=== PATIENT | male | born 1970 | race Caucasian/White ===

== ENCOUNTER 2020-08-23 08:47 | Inpatient (IN) | payer OTHER ==
[~2020-08-23] VITALS: Ht 185.4 cm; Wt 66.7 kg
[~2020-08-23 08:47] MED LIST: AMLODIPINE PO; AUGMENTIN 875875 M1 PO; BENAZEPRIL-HCT1 EA11 PO; CARBIDOPA-LEVO1 EA10 PO; CARBIDOPA-LEVO1 EAC5 PO; COUMADIN 5 MG TA5 M1 OR; DEPAKOTE500 MG PO; DESYREL150 MG PO; FENTANYL 1100 MCG/HR TD; HYDROCHLOROTHIA25 M2 PO; HYDROXYZINE PA100 MG PO; IBUPROFEN 800800 M1 PO; INVANZ IV; INVEGA6 MG PO; LEVOTHYROXINE25 MCG PO; LIPITOR40 MG PO; LISINOPRIL20 MG PO; LOPRESSOR100 MG PO; LORTAB 7.5/5001 TA3 PO; LOVENOX SQ; PERCOCET 5-3251 EACH PO; PROTONIX40 M2 PO; PROZAC 20 MG20 M1 PO; SENNA-S TABLET1 EACH PO; UNICOMPLEX M TA1 TA1 PO; VITAMINC500 PO; ZINC SULFATE 2220 MG PO
[2020-08-23] MEDS ORDERED: LISINOPRIL10 MG PO (11:02)
[2020-08-23] MEDS ORDERED: PRIMIDONE50 MG PO (11:02)
[2020-08-23] MEDS ORDERED: TRAZODONE HCL100 MG PO (11:03)
[2020-08-23] MEDS ORDERED: PROZAC20 MG PO (11:03)
[2020-08-23] MEDS ORDERED: GABAPENTIN 100100 MG PO (11:03)
[2020-08-23] MEDS ORDERED: AMITRIPTYLINE H10 M1 PO (11:03)
[2020-08-23 12:30] VITALS: BP 151/93
--- NOTE | 2020-08-23 14:01 | NUR ---
PT. ARRIVED ON THE UNIT AT 1200. PT. ARRIVED IN W/C ACCOMPANIED BY 3RD FLOOR STAFF. HE GOT INTO BED. HE ATE LUNCH AND GOT HIS VITAL SIGNS DONE. PART OF THE ADMISSION WAS DONE WHEN OT WANTED PT. TO GIVE HIM A SHOWER. PT. LEFT. HE ASKED FOR TYLENOL BUT MEDICATIONS WERE NOT INTO THE COMPUTER. WHEN MEDICATIONS WERE ENCODED THERE WERE NO PRN'S. EMRE CALLED, MESSAGE LEFT. PT. LIVES WITH HIS . PT. IS HERE FOR FAILURE TO THRIVE, FALLING AND WEAKNESS. HE STATES HE IS DEPRESSED AND THIS STARTED HIM NOT EATING. HE BECAME WEAK, STARTED FALLING AND CAME TO THE HOSPITAL. HE HAS A PMHX OF PARKINSON, OBSTRUCTIVE SLEEP APNEA, GERD, HYPOTHYROIDISM, HYPERLIPIDEMIA, DIVERTICULOSIS. HE USES OXYGEN AT NOC BUT NOT DURING THE DAY. HE HAS A IV IN HIS RIGHT FOREARM. HE HAS A SURGICAL HISTORY OF COLON RESECTION, APPENDECTOMY. HE IS COOPERATIVE WITH THE ADMISSION PROCESS.
--- NOTE | 2020-08-23 14:46 | NUR ---
chart review, visited with him while he was working with physial therapy. cm cont to wear face mask and shield during visit. intro to cm, team meeting and dcp. he cont to work with therapy. noted he lives with , has 2 steps to enter the home. independent prior to hospital. no dme, no hh or rehab in past. will cont following as needed for dc needs.
[2020-08-23 20:00] VITALS: BP 135/92
[2020-08-24 05:18] LABS: HEMOGLOBIN 9.9 gm/dL (14.0-18.0); MCH 25.9 pg (26.0-34.0); MCHC 32.8 g/dL (28.0-37.0); MCV 78.8 fL (80.0-100.0); RBC 3.81 mil/uL (4.50-6.00); RDW 16.1 % (10.5-14.5)
[2020-08-24 05:39] LABS: CALCIUM 8.5 mg/dL (8.5-10.1); CREATININE 0.7 mg/dL (0.7-1.3)
--- NOTE | 2020-08-24 06:56 | NUR ---
DENIES PAIN, USING URINAL, TOLERATING MEDS WITH WATER. QUIET HOURS
[2020-08-24 08:00] VITALS: BP 137/87
[2020-08-24 08:02] VITALS: BP 137/87
--- NOTE | 2020-08-24 13:11 | NUR ---
Nutrition: REC replete K+, currently 3.0. Also Mg 1.6, low.
--- NOTE | 2020-08-24 16:28 | NUR ---
PT ALERT AND ORIENTED TIMES FOUR WITH SOMEWAHT OF A BLUNTED AFFECT. PT DENIES PAIN/SOA AT THIS TIME. PT TOLERATES MED AND MEALS. PT WORKED WELL WITH PT/OT. PT AT BEDSIDE THIS AFTERNOON. PT SLOWLY PROGRESSING TOWARDS POC GOALS.
[2020-08-24 19:40] VITALS: BP 130/89
[2020-08-24 23:06] LABS: GLYCOHEMOGLOBIN (HGB A1C) 5.2 % (4.8-5.6)
--- NOTE | 2020-08-24 23:22 | NUR ---
PT ASSESSMENT COMPLETED AND VSS. MEDS GIVEN ORDERED AND WELL TOLERATED. FALL PRECAUTIONS IN PLACE. 2L NC AT HS. SAT WNL ON 2L NC. PT ATE SNACK AT HS. PT MOVING AROUND WELL IN BED. PT DENIES NEEDS. SLEEPING WELL. WILL CONTINUE TO MONITOR FREQUENTLY.
[2020-08-25 06:28] VITALS: BP 144/92
[2020-08-25 06:30] VITALS: BP 123/96
[2020-08-25 06:31] VITALS: BP 126/86
[2020-08-25 07:24] VITALS: BP 139/98
--- NOTE | 2020-08-25 12:15 | NUR ---
ASSUMED CARE AT 0700. PATIENT IS ALERT AND ORIENTED X4. PATIENT RAZO'S, IDENTIFICATION OFFICER ARE EQUAL. LUNGS ARE CLEAR. ABD IS SOFT WITH BSX4. PATIENT USES URINAL TO VOID DIOGO COLORED URINE. FALL AND SAFETY PROTOCOLS IN PLACE. DENIES PAIN AT THIS TIME. UP IN THE CHAIR FOR MEALS. S.L. IN HIS RIGHT FORARM. WILL CONTINUE TO MONITER.
[2020-08-25 12:43] LABS: URINE BILIRUBIN NEGATIVE (Negative); URINE BLOOD NEGATIVE (Negative); URINE CLARITY CLEAR; URINE COLOR YELLOW; URINE GLUCOSE-RANDOM* NEGATIVE (Negative); URINE KETONES NEGATIVE (Negative); URINE LEUKOCYTES-REFLEX TRACE (Negative); URINE NITRITE-REFLEX NEGATIVE (Negative); URINE PROTEIN (DIPSTICK) NEGATIVE (Negative); URINE SPECIFIC GRAVITY 1.015 (1.005-1.035)
[2020-08-25 12:50] LABS: SSA (PROTEIN CONFIRMATORY) NEGATIVE (Negative)
[2020-08-25 19:42] VITALS: BP 147/82
[2020-08-25 21:14] VITALS: BP 138/64
--- NOTE | 2020-08-25 23:21 | NUR ---
PT ASSESSMENT COMPLETED AND VSS. MEDS GIVEN ORDERED AND WELL TOLERATED. FALL PRECAUTIONS IN PLACE. VOIDING MODERATE AMOUNT OF YELLOW URINE PER URINAL. PT MOVING WELL IN THE BED ON HIS OWN. 2L NC ON A HS FOR SLEEP APNEA. PT DENIES NEEDS. SLEEPING AT THIS TIME. WILL CONTINUE TO MONITOR FREQUENTLY.
[2020-08-26 05:08] LABS: CALCIUM 8.9 mg/dL (8.5-10.1); CREATININE 0.8 mg/dL (0.7-1.3); POTASSIUM 4.2 mmol/L (3.5-5.1)
[2020-08-26 07:10] VITALS: BP 139/95
--- NOTE | 2020-08-26 10:15 | NUR ---
ASSUMED CARE AT 0700. PATIENT IS ALERT AND ORIENTED X4. PATIENT RAZO'S, DAIRY FARM WORKER ARE EQUAL. LUNGS ARE CLEAR AND DEMINISHED. ABD IS SOFT WITH BSX4. UP IN CHAIR FOR BREAkfast. VOIDING DIOGO COLORED URINE PER URINAL. S.L. IN RIGHT F.A. PATIENT AND INTACT. FALL AND SAFETY PROTOCOLS IN PLACE. DENIES PAIN AT THIS TIME. WILL CONTINUE TO MONITER.
[2020-08-26 19:52] VITALS: BP 146/100
--- NOTE | 2020-08-27 01:33 | NUR ---
assumed care approx 1899 evening 08/26. pt alert and oriented x4, appropriate and cooperative. pt voiding per urinal. pt took hs meds with water tolerating well. pt appears to be sleeping soundly. bed alarm on and call light in reach. will continue to monitor.
[2020-08-27 05:29] LABS: ABSOLUTE NEUTROPHILS 3.1 thou/uL (1.4-8.2); BASOPHILS 0.6 % (0.0-2.0); EOSINOPHILS 0.5 % (0.0-3.0); HEMATOCRIT 31.6 % (42.0-52.0); HEMOGLOBIN 10.6 gm/dL (14.0-18.0); LYMPHOCYTES 38.9 % (24.0-44.0); MCH 26.6 pg (26.0-34.0); MCHC 33.4 g/dL (28.0-37.0); MCV 79.5 fL (80.0-100.0); MONOCYTES 11.7 % (1.0-8.0); PLATELET COUNT 284 thou/uL (150-400); POLYS 48.3 % (36.0-66.0); RBC 3.98 mil/uL (4.50-6.00); RDW 16.8 % (10.5-14.5); WBC 6.5 thou/uL (4.0-11.0)
[2020-08-27 05:57] LABS: CALCIUM 9.1 mg/dL (8.5-10.1); CREATININE 0.8 mg/dL (0.7-1.3); MAGNESIUM 1.6 mg/dL (1.8-2.4); POTASSIUM 4.2 mmol/L (3.5-5.1)
[2020-08-27 07:47] VITALS: BP 142/97
--- NOTE | 2020-08-27 18:52 | NUR ---
Pt c/o constipation. Reports small BM this afternoon following Miralax. Tylenol given this evening for c/o PARSONS. Otherwise no complaints. Voiding per urinal. VSS.
[2020-08-27 19:41] VITALS: BP 138/94
--- NOTE | 2020-08-28 02:31 | NUR ---
TOLERATING MEDS WITH WATER, USING URINAL FOR 350 CC CLEAR YELLOW URINE. 02 2L AT NIGHT DUE TO CHRONIC SLEEP APNEA.
[2020-08-28 07:33] VITALS: BP 121/87
--- NOTE | 2020-08-28 08:43 | NUR ---
ASSUMED CARE AT 0700. PATIENT IS ALERT AND ORIENTED X4. PATIENT HAS TREMORS IN BOTH HANDS. LUNGS ARE CLEAR. ABD IS SOFT WITH BSX4. PATIENT HAD BM YESTERDAY. PATIENT USES URINAL TO VOID DIOGO COLORED URINE. UP IN THE CHAIR FOR MEALS. FALL AND SAFETY PROTOCOLS IN PLACE. DENIES PAIN AT THIS TIME. CONTINUES TO PROGRESS TOWARDS D/C GOALS. WILL CONTINUE TO MONITER.
--- NOTE | 2020-08-28 09:09 | HC ---
[facility] [place] [address] CONSULTATION Name: ROSMERY SAHNI Room #: 505-P ADM IN ..#: [id number] Admission: 08/23/20 Attend Phys: Derick Gardner MD Discharge: Date of : 72 Report #: [id number] THIS REPORT FOR: cc: SIMIN BROWER Physician not on staff Silverio Mathur PhD ~ DATE OF SERVICE: 08/26/2020 NEUROBEHAVIORAL STATUS EXAM AGE: 50 ATTENDING PHYSICIAN: Derick Gardner MD SPECIAL WARFARE OPERATOR: Silverio Mathur, PhD CLINICAL PRESENTATION: The patient is a 50-year-old male admitted to the hospital on 08/17/2020 with weakness and inability to care for himself in his home. The patient has had a 6-month decline in physical status and there was a significant decline in the 48 hours preceding hospitalization. The patient has been diagnosed with Parkinson's disease about 5 months ago and started with Sinemet with a noted improvement in tremors. The patient has had a very significant weight loss in the past 12 months, losing from 280 to 150 pounds. He carries an admitting diagnosis of parkinsonism with falls and gait instability and tremor, peripheral neuropathy, lung nodules, anemia, hypertension, insomnia, PCM, history of colonic perforation, anxiety, obstructive sleep apnea and GERD. A complete description of his medical condition and history can be found in his medical record. Neuropsychological consultation was requested to provide assistance in the assessment of cognitive with an emotional status and provide recommendations and services. Prior to this most recent admission, he was living with the assistance of his in their home. He has a history of frequent falls. He did fall and hit his head more significantly last year. Family history of depression is reported. The patient has had an identical twin that from suicide in 2005. The patient carries a diagnosis of depression and difficulty with frustration tolerance and anger. Depressive disorder was diagnosed in 2005. Parkinson's disease was diagnosed last year. A ruptured colon was reported. His indicates that he has been unable to walk or stand. The patient has 1 child that is reported as a drug addict. The patient has had trouble driving. 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 The patient has not worked for 10 years. TECHNIQUES UTILIZED: Clinical interview, review of medical records, staff [facility] [address] [place] [address] CONSULTATION Name: KAITLYNROSMERY Room #: 505-P [facility] IN [facility].#: [id number] Admission: 08/23/20 Attend Phys: Derick Gardner MD Discharge: Date of : 72 Report #: [id number] consultation and behavioral observation, mini mental status exam 2 standard version, clock drawing and verbal fluency assessment. EXAMINATION FINDINGS: The patient was alert and cooperative with the assessment. There is no evidence of aphasia. His thoughts are logical and goal oriented. There is no evidence of thought disorder. He does not report auditory or visual hallucinations. Symptoms include sleep disorder, decreased appetite, problems with memory and word finding. His performance on the MMSE 2 brief version was in the borderline range with a raw score of 13/16, which is a T score of 31 and percentile rank of 3. The patient was 3/3 for initial registration, 5/5 for orientation to time, 4/[address] and 1/3 for immediate recall of 3 items after a brief time delay and distraction. Performance on the MMSE 2 standard version was 23/30, which is in the borderline range with a T score of 29 and percentile rank at 2. He was 2/5 for serial sevens, 2/2 for naming, 1/1 for repetition, 3/3 for comprehension. He could read and follow single command and write a sentence. The patient was unable to copy a simple geometric design. The patient has significant visual spatial and constructive deficits. He was able to set the hands at a designated time, but had difficulty with construction. Visual spatial and perceptual deficits are suggested. Letter fluency was extremely low with a T score of 19 and a raw score 6. Category fluency was extremely low with a raw score of 18 and a T score of 19. Overall, total fluency was extremely low with a raw score of 24 and T score of 19. The patient is presenting with deficits in immediate recall, attention/concentration and executive functioning. Visual spatial coordination is also very poor. DIAGNOSTIC IMPRESSION: Neurocognitive disorder, likely due to parkinsonism -- extent to be determined, without behavior disorder, likely moderate severity. Unspecified depressive disorder. RECOMMENDATIONS: The patient would benefit from a treatment program for depression along with ongoing treatment for parkinsonism. The use of antidepressant medication and psychotherapy are indicated. He will need assistance in the management of medication, finances and nutrition. Assistance [address] [address] CONSULTATION Name: ROSMERY SAHNI Room #: 505-P [facility] IN M.R.#: [id number] Admission: 08/23/20 Attend Phys: Derick Gardner MD Discharge: Date of : 72 Report #: [id number] with planning and problem solving is necessary. Educational information to the patient and his will also assist in the overall adjustment. A followup neuropsych assessment would be of benefit to clarify cognitive status upon stabilization of his medical condition. Thank you very much for allowing me to provide the consultation on this patient. <ELECTRONICALLY SIGNED> By: Silverio Mathur, PhD 08/28/20 0909 [id number] Silverio Mathur, PhD /nt
--- NOTE | 2020-08-28 13:32 | NUR ---
team meeting, reccommendation: been moved to appartment. SOA with act. move fatique with act. poor understanding on dx of parkinson. prior to hospital he was in bed all time. he told staff about his twin brother SI and his son with drug use. pet scan and pulmonary MD outpt prior to dc. 09/04 dc HH (nursing), will need fww will need auth rt his medication.
[2020-08-28 14:19] VITALS: BP 92/62
[2020-08-28 19:55] VITALS: BP 106/69
--- NOTE | 2020-08-29 00:58 | NUR ---
ASSUMED PT CARE AT 1900.PT WAS ALERT/CALM AND COPERATIVE WITH CARE.PT DENIED PAIN SO FAR.PT ON 2L/NC DUE TO SLEEP APNEA.PT ABLE TO MAKE HIS NEEDS KNOWN.CALL LIGHT WITHIN REACH.
[2020-08-29 09:30] VITALS: BP 92/63
--- NOTE | 2020-08-29 10:00 | NUR ---
PT SITTING UP IN CHAIR WITH GAIT BELT. PT UP WITH X1 ASSIST WITH WALKER. PT TOOK MEDS WHOLE WITH WATER. PT STATED HE HAS NEUROPATHY TO FEET AND THEY FEEL LIKE PINS AND NEEDLES AND SOME NUMBNESS. PT HAS SLIGHT TREMORS TO EXT. PT STATED HE FEELS GOOD TODAY. NO OG DHILLON NOTED ON PT AND HE STATED HE HAS NOT HAD THEM ON.
[2020-08-29 13:05] VITALS: BP 88/61
[2020-08-29 19:00] VITALS: BP 108/76
--- NOTE | 2020-08-30 03:54 | NUR ---
USING URINAL WITH ASSIST ONLY TO EMPTY. PATIENT HAS NOT NOTICED MUCH HELP WITH NEUROPATHY WITH GABAPENTIN, WEARS SHOES ALL NIGHT IN ORDER TO CONTROL IT. USES CPAP AT HOME BUT DOES NIGHT LIKE OUR MASK SO HE USES O2 2L.
[2020-08-30 08:00] VITALS: BP 107/76; BP 146/68
--- NOTE | 2020-08-30 08:41 | NUR ---
PT IN BATHROOM AND HAD A MED BM. PT UP WITH CANE OR WALKER WITH STAND-BY ASSIST. PT DENIES ANY PAIN AT THIS TIME. PT DOES HAVE TINGLING TO FEET BILATERALY DUE TO NEUROPATHY. PT TAKES MEDS WHOLE WITH WATER. PT IN A PLEASANT MOOD.
--- NOTE | 2020-08-30 15:56 | NUR ---
selena spoke with diana at [facility]. auth for fww provided with auth # [id number]. [facility] will deliver day of dc 09/04
[2020-08-30 19:30] VITALS: BP 119/85
--- NOTE | 2020-08-31 02:37 | NUR ---
UP TO TOILET FOR STANDING VOID WITH STANBY ASSIST AND WALKER, GAIT BELT FOR SAFETY ONLY. CEPACOL A LITTLE AFTER MIDNIGHT FOR C/O COUGH STUBBORN ENOUGH TO KEEP HIM AWAKE, USES CPAP AT HOME, O2 2L PNC AT NIGHT HERE
[2020-08-31 08:00] VITALS: BP 113/76
--- NOTE | 2020-08-31 14:14 | NUR ---
ASSUMED CARE AT 0700 THIS MORNING. PT. IN HIS ROOM SITTING UP ON HIS BED. HE WAS PLEASANT AND COOPERATIVE WITH STAFF, MEDICATIONS, AND ASSESSMENT. PT. DENIES ANY NEW PROBLEMS. NONE WERE NOTED. HE HAS BEEN WORKING WITH THERAPIES TODAY.
[2020-08-31 20:00] VITALS: BP 126/76
--- NOTE | 2020-09-01 01:42 | NUR ---
assumed care approx 1900 evening 08/31. pt alert and oriented x4, appropriate and cooperative. pt voiding per urinal. pt took hs meds with water tolerating well. pt appears to be sleeping soundly. bed alarm on and call light in reach. will continue to monitor.
[2020-09-01 08:00] VITALS: BP 112/83
--- NOTE | 2020-09-01 11:06 | NUR ---
CARE ASSUMED AT 0700, PT ALERT AND ORIENTED X4, DENIES ANY CHEST PAIN, NAUSEA AND VOMITTING. PT ON ROOM AIR, NO SIGNS OF DISTRESS NOTED. PT USES URINAL AND UP WITH 1 ASSIST TO BATHROOM. USES CALL LIGHT APPROPRIATELY. FALL PRECAUTIONS IN PLACE. WILL CONTINUE TO MONITOR.
[2020-09-01 19:55] VITALS: BP 126/87
--- NOTE | 2020-09-01 23:33 | NUR ---
PT ALERT AND ORIENTED X 4. USES URINAL. PT DENIES PAIN OR DISCOMFORT. BED ALARM ON FOR SAFETY. PT APPEARS TO BE SLEEPING ON HOURLY ROUNDS.
[2020-09-02 07:40] VITALS: BP 118/79
--- NOTE | 2020-09-02 11:02 | NUR ---
ASSUMED CARE AT 0700. SLEPT FAIRLY WELL. ALERT AND ORIENTATED. DENIES ANY PAIN. APPETITE GOOD. PT AGREED TO TAKE HIS MIRALAX THIS MORNING. HAD A BM WITH NO COMPLAINS OF DIARRHEA TODAY. UP WITH SBA, WALKED IN THE HALLWAY WITH STAFF WITH NO COMPLAINS OF SHORT OF AIR OR CHEST PAIN. TOLERATED MEDS WITH WATER.
[2020-09-02 19:26] VITALS: BP 127/91
--- NOTE | 2020-09-03 00:03 | NUR ---
PT ALERT AND ORIENTED X 4. O2 ON AT 2L PER NC AT NIGHT. VOIDING PER URINAL. PT DENIES PAIN OR DISCOMFORT. BED ALARM ON FOR SAFETY. PT APPEARS TO BE SLEEPING ON HOURLY ROUNDS.
[2020-09-03 08:30] VITALS: BP 132/82
--- NOTE | 2020-09-03 10:01 | NUR ---
PT DISCHARGING TOMORROW 09/04 TO HOME WITH HH PT HAS MEDICAID ONLY SPOKE WITH THE FOLLOWING HH'S THAT HAVE ALL DENIED DUE TO INSURANCE OR DO NOT COVER [facility], [facility], [facility], [facility], [facility], [facility], [facility], [facility], [facility], [facility].
--- NOTE | 2020-09-03 11:05 | NUR ---
cm updated MD, and CISTERN ROOM OPERATOR's that not able to find home health nurse only that goes to [facility] that will accept medicaid, [facility] has over 10 referral.
--- NOTE | 2020-09-03 11:16 | NUR ---
ASSUMED CARE AT 0700. SLEPT FAIRLY WELL. ALERT AND ORIENTATED. COMPLAINED OF NEUROPATHIC PAIN IN BLE, CURRENTLY ON NEURONTIN. REFUSED HIS MIRALAX THIS MORNING, ALREADY HAD A BM TODAY. APPETITE GOOD. DIURESING WELL. DR YODER AGREES WITH MOD I WITH OK WITH THERAPY. PLAN FOR DC HOME TOMORROW.
[2020-09-03 16:56] LABS: URINE BILIRUBIN NEGATIVE (Negative); URINE BLOOD 1+ (Negative); URINE CLARITY CLOUDY; URINE COLOR YELLOW; URINE GLUCOSE-RANDOM* NEGATIVE (Negative); URINE KETONES 1+ (Negative); URINE LEUKOCYTES-REFLEX 2+ (Negative); URINE NITRITE-REFLEX NEGATIVE (Negative); URINE PROTEIN (DIPSTICK) 2+ (Negative); URINE UROBILINOGEN 0.2 E.U./dl (0.2-1.0)
[2020-09-03 17:06] LABS: CASTS None Seen /LPF (None Seen); CRYSTALS None Seen /LPF (None Seen); SQUAMOUS None Seen /LPF (0-3); URINE WBC-REFLEX >25 Many /HPF (0-5)
[2020-09-03 19:30] VITALS: BP 135/88
[2020-09-04 05:24] LABS: ABSOLUTE NEUTROPHILS 3.3 thou/uL (1.4-8.2); BASOPHILS 0.8 % (0.0-2.0); EOSINOPHILS 1.2 % (0.0-3.0); HEMATOCRIT 29.8 % (42.0-52.0); HEMOGLOBIN 9.9 gm/dL (14.0-18.0); LYMPHOCYTES 40.8 % (24.0-44.0); MCH 27.3 pg (26.0-34.0); MCHC 33.3 g/dL (28.0-37.0); MCV 82.1 fL (80.0-100.0); MONOCYTES 8.9 % (1.0-8.0); PLATELET COUNT 275 thou/uL (150-400); POLYS 48.3 % (36.0-66.0); RBC 3.63 mil/uL (4.50-6.00); RDW 19.5 % (10.5-14.5); WBC 6.8 thou/uL (4.0-11.0)
[2020-09-04 05:28] LABS: CALCIUM 8.9 mg/dL (8.5-10.1); CREATININE 0.9 mg/dL (0.7-1.3); MAGNESIUM 1.5 mg/dL (1.8-2.4); POTASSIUM 3.7 mmol/L (3.5-5.1)
--- NOTE | 2020-09-04 06:32 | NUR ---
Pt. c/o frequency and burning when urinating. LIGHTER CAPTAIN notified and one time order of fosfomycin 3 gm po given to pt. Pt. stated he slept intermittently . Denies any pain. Up ad denisha in room with use of walker. Progressing towards discharge goals.
[2020-09-04 08:18] VITALS: BP 135/88
[2020-09-04] MEDS ORDERED: PROTONIX40 M2 PO (08:55)
[2020-09-04] MEDS ORDERED: FOLIC ACID1 MG PO (08:55)
[2020-09-04] MEDS ORDERED: VITAMIN D21250 MC1 PO (08:55)
[2020-09-04] MEDS ORDERED: TRAZODONE HCL100 MG PO (08:55)
[2020-09-04] MEDS ORDERED: PRIMIDONE50 MG PO (08:57)
[2020-09-04] MEDS ORDERED: LISINOPRIL2.5 MG PO (08:57)
[2020-09-04] MEDS ORDERED: CEFUROXIME250 MG PO (08:57)
[2020-09-04] MEDS ORDERED: LIPITOR40 MG PO (08:57)
[2020-09-04] MEDS ORDERED: PROZAC20 MG PO (08:57)
[2020-09-04] MEDS ORDERED: GABAPENTIN 100100 MG PO (08:57)
--- NOTE | 2020-09-04 10:14 | NUR ---
ASSUMED CARE AT 0700. PATIENT IS ALERT AND ORIENTED X4. PATIENT HAS OCCASIONAL TREMORS IN HIS HANDS. PATIENT RAZO'S. TOLL TEST WORKER ARE EQUAL. LUNGS ARE CLEAR. ABD IS SOFT WITH BSX4. PATIENT IS MOD/I IN ROOM WITH WALKER. PATIENT CONTINUES ON ABT FOR FREQ AND BURNING. UP IN CHAIR FOR MEALS. FALL AND SAFETY PROTOCOLS IN PLACE. DENIES PAIN. CONTINUES TO PROGRESS TOWARDS D/C GOALS. PLAN D/C TO HOME LATER TODAY. WILL CONTINUE TO MONITER.
[2020-09-04 10:21] VITALS: BP 135/88
--- NOTE | 2020-09-04 12:12 | NUR ---
PATIENT AND GIVEN D/C INSTRUCTIONS. PATIENT SCRIPTS SENT TO THEIR PHARMACY. PATIENT LEFT UNIT PER W/C IN GOOD CONDITION. PATIENT TRANSFERED HIMSELF FROM W/C TO THEIR CAR.
--- NOTE | 2020-09-04 12:29 | NUR ---
team meeting, reccommendation: cont with dc home with patricio. cont with follow up outpt
--- NOTE | 2020-09-05 08:17 | PLAN ---
[facility] [place] [address] REHAB UNIT PLAN OF CARE Name: ROSMERY SAHNI Room #: 501-A [facility] IN ..#: [id number] Admission: 08/23/20 Attend Phys: Derick Gardner MD Discharge: 09/04/20 Date of : 72 Report #: [id number] THIS REPORT FOR: cc: SIMIN BROWER Physician not on staff Derick Gardner MD ~ DATE OF SERVICE: 08/25/2020 PROGRESS NOTE AND OVERALL PLAN OF CARE SUBJECTIVE: The patient was seen back earlier. Temperature 36.6, pulse 64, respirations 20, blood pressure 139/90. He was in no distress. He has been working in therapies. He typically uses a urinal to void. Transfers are mod assist with gait up to 170 feet, needing assistance. He does have decreased balance, does better with the walker. Lower body dressing is setup; upper body dressing is set up. He has moderate cognitive deficits with moderate to severe memory deficits. ASSESSMENT: A 50-year-old male with the following problem list: 1. Parkinsonism with falls and gait instability and tremor. 2. Peripheral neuropathy. 3. Lung nodules. 4. Anemia. 5. Hypertension. 6. Insomnia. 7. Protein-calorie malnutrition. 8. History of colonic perforation. 9. Anxiety. 10. History of obstructive sleep apnea. 11. Gastroesophageal reflux disease. PLAN: The overall plan of care is based on the preadmission screen and information garnered from therapy assessments. 1. Estimated length of stay is probably around 10-14 days. 2. Medical prognosis is reasonably good. 3. Anticipated interventions includes the interdisciplinary acute inpatient rehabilitation program. 4. Anticipated functional outcomes would be for the patient to become modified independent with transfers, mobility and ADLs at the walker level along with improved cognition. Trying to work on improving his overall balance and stability with his Parkinsonism, complicated by the peripheral neuropathy and the overall generalized weakness and debilitation. 5. Discharge destination is back to the home setting where he lives with his . 6. Expected therapy by discipline includes PT, OT and speech [address] [facility] [address] [place] [address] REHAB UNIT PLAN OF CARE Name: ROSMERY SAHNI Room #: 501-A [facility] IN [facility]#: [id number] Admission: 08/23/20 Attend Phys: Derick Gardner MD Discharge: 09/04/20 Date of : 72 Report #: [id number] day each five days a week throughout the duration of the acute inpatient rehabilitation stay. <ELECTRONICALLY SIGNED> By: Derick Gardner MD 09/05/20 0817 [id number] Derick Gardner MD /[place]
== END 2020-09-04 12:00 | disposition home or self-care (01) | DRG 57 ==
PROVIDERS: Nurse Practitioner; Nurse Practitioner Family; ADMIT Physical Medicine & Rehabilitation; ATTEND Physical Medicine & Rehabilitation
DX: G20 Parkinson's disease (principal); E46 Unspecified protein-calorie malnutrition; Z68.1 Body mass index [BMI] 19.9 or less, adult; N39.0 Urinary tract infection, site not specified; G62.9 Polyneuropathy, unspecified; D64.9 Anemia, unspecified; I10 Essential (primary) hypertension; G47.00 Insomnia, unspecified; F41.9 Anxiety disorder, unspecified; G47.33 Obstructive sleep apnea (adult) (pediatric); K21.9 Gastro-esophageal reflux disease without esophagitis; R41.9 Unspecified symptoms and signs involving cognitive functions and awareness; F32.9 Major depressive disorder, single episode, unspecified; R26.89 Other abnormalities of gait and mobility; E78.5 Hyperlipidemia, unspecified; K57.90 Diverticulosis of intestine, part unspecified, without perforation or abscess without bleeding; R91.8 Other nonspecific abnormal finding of lung field; E87.6 Hypokalemia; K59.00 Constipation, unspecified; R62.7 Adult failure to thrive; E83.42 Hypomagnesemia; E53.8 Deficiency of other specified B group vitamins; Z91.81 History of falling; Z90.49 Acquired absence of other specified parts of digestive tract; Z88.6 Allergy status to analgesic agent
CPT/HCPCS: 10112